=== PATIENT | male | born 1970 | race Hispanic/Latino ===

== ENCOUNTER 2017-07-08 09:40 | Inpatient (IN) | payer MEDICARE ==
[~2017-07-08] VITALS: Ht 180.3 cm; Wt 108.8 kg
[~2017-07-08 09:40] MED LIST: CARV12.511 PO; FOLI1TAB85 PO; INS7030; INS7030 SQ; LISI10TA7 PO; PHOSLOC PO; SEVE800T7 PO
[2017-07-08 10:33] LABS: BASOPHILS % (AUTO) 0.5 % (0.0-5.0); EOSINOPHILS % (AUTO) 0.1 % (0.0-8.0); LYMPHOCYTES % (AUTO) 4.9 % (21.0-51.0); MEAN CORPUSCULAR HGB CONC 33.9 g/dL (32.0-36.0); MEAN CORPUSCULAR VOLUME 97.5 fL (79-99); MONOCYTES % (AUTO) 6.3 % (3.0-13.0); NEUTROPHILS % (AUTO) 88.2 % (40.0-77.0); PLATELET COUNT (AUTO) 135 K/uL (130-400); RED BLOOD CELL COUNT(AUTO) 4.72 MIL/uL (4.50-6.20); RED CELL DISTRIBUTION WIDTH 15.2 % (11.0-15.5); WHITE BLOOD COUNT (AUTO) 18.4 K/uL (4.8-10.8)
[2017-07-08 10:45] LABS: INR 1.09 (0.85-1.15); PARTIAL THROMBOPLASTIN TIME 36.7 SEC (26.3-35.5); PROTHROMBIN TIME 11.4 SEC (9.6-11.6)
[2017-07-08] MEDS ORDERED: ONDANSETRON HCL 4 MG/2 ML VIAL ONE (10:46)
[2017-07-08] MEDS ORDERED: ACETAMINOPHEN EXTRA STRENGTH 500 MG TABLET ONE (10:47)
[2017-07-08] MEDS ORDERED: SODIUM CHLORIDE 0.9% 500ML 500 ML IV ONE (10:47)
[2017-07-08] MEDS ORDERED: CEFTRIAXONE SODIUM 1 GM ONE (10:50)
[2017-07-08 11:07] LABS: ALBUMIN 3.1 g/dL (3.5-5.0); BILIRUBIN,DIRECT 0.2 mg/dL (0.0-0.3); BILIRUBIN,TOTAL 0.8 mg/dL (0.2-1.0); POTASSIUM 5.3 mmol/L (3.5-5.1)
[2017-07-08 11:18] LABS: CREATININE 13.6 mg/dL (0.5-1.5)
[2017-07-08] MEDS ORDERED: PROCHLORPERAZINE EDISYLATE 10 MG/2 ML VIAL ONE (11:54)
[2017-07-08] MEDS ORDERED: VANCOMYCIN 1GM+NS 250ML 250 ML IV ONE (13:16)
[2017-07-08] MEDS ORDERED: PANTOPRAZOLE SODIUM 40 MG TABLET.DR PO ONE (13:28)
[2017-07-08] MEDS ORDERED: DEXTROSE 50%-WATER 50 ML DISP.SYRIN IV PRN (13:45)
[2017-07-08] MEDS ORDERED: GLUCAGON 1MG KIT 1 MG ML IM PRN (13:45)
[2017-07-08] MEDS ORDERED: VANCOMYCIN 1.5 GM in SODIUM CHLORIDE 0.9% 250 ML IV SCH (13:45)
[2017-07-08] MEDS ORDERED: ONDANSETRON HCL 4 MG/2 ML VIAL IVP PRN (13:45)
[2017-07-08] MEDS ORDERED: ACETAMINOPHEN 325 MG TAB PO PRN (13:45)
[2017-07-08 14:10] VITALS: BP 119/71
[2017-07-08] MEDS ORDERED: VANCOMYCIN PROTOCOL PER PHARMACY IV SCH (15:30)
[2017-07-08] MEDS ORDERED: 0.9% SODIUM CHLORIDE 250 ML IV BAG IV PRN (16:30)
[2017-07-08] MEDS ORDERED: ALBUMIN (HUMAN) 25% 100 ML IV PRN (16:30)
[2017-07-08] MEDS: INSULIN R PO SS1/2 SQ SCH ×2 (16:30→20:55)
[2017-07-08] MEDS ORDERED: SODIUM CHLORIDE 0.9% 1000ML 1,000 ML IV PRN (16:30)
[2017-07-08] MEDS ORDERED: HEPARIN SODIUM 5000UNIT/ML 1ML VIAL IJ PRN (16:30)
[2017-07-08 19:55] VITALS: BP 108/56
[2017-07-08] MEDS ORDERED: GENTAMICIN SULFATE 80 MG/2 ML VIAL IM SCH (20:30)
[2017-07-08] MEDS: CEFTAZIDIME PENTAHYDRATE 1 GM/VIAL IVP SCH (20:45)
[2017-07-08] MEDS: ACETAMINOPHEN 325 MG TAB PO PRN (20:45)
[2017-07-09] VITALS (7 sets, daily range): BP systolic 125–152; BP diastolic 70–85
[2017-07-09 03:55] LABS: HEMATOCRIT 43.6 % (42-54); MEAN CORPUSCULAR HGB CONC 33.5 g/dL (32.0-36.0); MEAN CORPUSCULAR VOLUME 98.5 fL (79-99); PLATELET COUNT (AUTO) 156 K/uL (130-400); RED BLOOD CELL COUNT(AUTO) 4.43 MIL/uL (4.50-6.20); RED CELL DISTRIBUTION WIDTH 15.4 % (11.0-15.5); WHITE BLOOD COUNT (AUTO) 22.3 K/uL (4.8-10.8)
[2017-07-09 04:14] LABS: PHOSPHORUS 4.1 mg/dL (2.5-4.9); POTASSIUM 4.6 mmol/L (3.5-5.1)
[2017-07-09 04:20] LABS: CREATININE 11.1 mg/dL (0.5-1.5)
[2017-07-09] MEDS: INSULIN R PO SS1/2 SQ SCH ×5 (06:17→20:53)
[2017-07-09] MEDS: ACETAMINOPHEN 325 MG TAB PO PRN ×2 (11:18→15:23)
[2017-07-09] MEDS: CEFTAZIDIME PENTAHYDRATE 1 GM/VIAL IVP SCH (13:55)
[2017-07-10 03:00] VITALS: BP 134/78
[2017-07-10 04:17] LABS: HEMATOCRIT 41.3 % (42-54); MEAN CORPUSCULAR HEMOGLOBIN 32.6 pg (27.0-33.0); MEAN CORPUSCULAR HGB CONC 33.4 g/dL (32.0-36.0); MEAN CORPUSCULAR VOLUME 97.7 fL (79-99); PLATELET COUNT (AUTO) 154 K/uL (130-400); RED BLOOD CELL COUNT(AUTO) 4.23 MIL/uL (4.50-6.20); RED CELL DISTRIBUTION WIDTH 15.3 % (11.0-15.5); WHITE BLOOD COUNT (AUTO) 21.9 K/uL (4.8-10.8)
[2017-07-10 04:31] LABS: POTASSIUM 4.8 mmol/L (3.5-5.1)
[2017-07-10 04:35] LABS: CREATININE 14.4 mg/dL (0.5-1.5)
[2017-07-10 05:17] LABS: BAND NEUTROPHILS % (MANUAL) 9 % (0-2); EOSINOPHILS % (MANUAL) 1 % (1-6); LYMPHOCYTES % (MANUAL) 5 % (22-44); MAN.DIFF COMMENT-IMPRESSION MANUAL DIFFERENTIAL; MONOCYTES % (MANUAL) 13 % (2-9); REACTIVE LYMPHOCYTES 1 % (0-0); SEGMENTED NEUTROPHILS % 71 % (40-70)
[2017-07-10 05:18] LABS: PLATELET MORPHOLOGY COMMENT ADEQUATE
[2017-07-10] MEDS: INSULIN R PO SS1/2 SQ SCH ×2 (06:25→12:11)
[2017-07-10 07:00] VITALS: BP 139/79
[2017-07-10 11:00] VITALS: BP 141/88
[2017-07-10] MEDS: CEFTAZIDIME PENTAHYDRATE 1 GM/VIAL IVP SCH (14:56)
[2017-07-10 15:51] VITALS: BP 163/90
[2017-07-15] MEDS ORDERED: VANCOMYCIN 1.5 GM in SODIUM CHLORIDE 0.9% 250 ML IV SCH (09:00)
== END 2017-07-10 17:45 | disposition left against medical advice (07) | DRG 871 ==
LOC: EDH 09:40 → EDHIP 12:40 → 3BH 13:40
PROVIDERS: ADMIT Internal Medicine Nephrology; ATTEND Internal Medicine Nephrology
PROC: 5A1D70Z Performance of Urinary Filtration, Intermittent, Less than 6 Hours Per Day (ICD-10-PCS; principal; 2017-07-08)
DX: A41.9 Sepsis, unspecified organism (principal); N18.6 End stage renal disease; E11.21 Type 2 diabetes mellitus with diabetic nephropathy; E11.51 Type 2 diabetes mellitus with diabetic peripheral angiopathy without gangrene; I12.0 Hypertensive chronic kidney disease with stage 5 chronic kidney disease or end stage renal disease; D64.9 Anemia, unspecified; E11.22 Type 2 diabetes mellitus with diabetic chronic kidney disease; E11.621 Type 2 diabetes mellitus with foot ulcer; E87.5 Hyperkalemia; E88.09 Other disorders of plasma-protein metabolism, not elsewhere classified; I25.10 Atherosclerotic heart disease of native coronary artery without angina pectoris; L08.9 Local infection of the skin and subcutaneous tissue, unspecified; L97.529 Non-pressure chronic ulcer of other part of left foot with unspecified severity; Z91.19 Patient's noncompliance with other medical treatment and regimen; Z95.1 Presence of aortocoronary bypass graft; Z99.2 Dependence on renal dialysis
CPT/HCPCS: 36415; 70450; 71045; 73630; 73718; 80048; 80076; 82550; 82948; 83605; 83690; 84100; 84484; 85025; 85027; 85610; 85730; 87040; 87070; 87076; 87804; 90935; 93005; 93925; A4218; J0696; J0713; J0780; J1580; J1815; J2405; J3370; J7030; J7040